=== PATIENT | female | born 1990 | race Caucasian/White ===

== ENCOUNTER → 2023-04-11 08:54 | Outpatient (CLI) | payer BC, SELFPAY ==
--- NOTE | ~2023-04-11 | US_ITS ---
EXAMINATION: US pelvic complete w TV DATE: 04/11/2023 09:20 INDICATION: Irregular periods Comparison:No prior studies for comparison. TECHNIQUE: Multiple transabdominal and endovaginal sonographic images of the pelvis performed. FINDINGS: The uterus measures 6.6 x 3.2 x 3.8 cm. The endometrial complex measures 8 mm. The right ovary measures 3.6 x 2.3 x 2.4 cm and the left ovary measures 3.4 x 2.6 x 1.4 cm. There ar e small follicles in each ovary. Normal doppler signal in both ovaries. There is no free fluid in the pelvis. There are no abnormal masses seen on either side. IMPRESSION: 1. Unremarkable pelvic ultrasound. Reviewed, dictated and finalized at location B.
== END ==
PROVIDERS: Visit Provider Emergency Medicine
DX: N92.6 Irregular menstruation, unspecified (principal)
CPT/HCPCS: 76830; 76856